=== PATIENT | male | born 1960 | race Two or more races ===

== ENCOUNTER 2024-12-28 16:26 | Emergency (ER) | payer SELFPAY ==
[~2024-12-28] VITALS: Ht 167.6 cm; Wt 78.9 kg
[2024-12-28 17:09] LABS: EOSINOPHILS % (AUTO) 0.6 % (0.0-6.0); LYMPHOCYTES # (AUTO) 0.5 K/uL (0.8-4.8); LYMPHOCYTES % (AUTO) 14.1 % (20.0-44.0); NEUTROPHILS # (AUTO) 2.5 K/uL (1.8-8.9); WHITE BLOOD COUNT (AUTO) 3.2 K/uL (4.3-11.0)
[2024-12-28] MEDS ORDERED: SPIRONOLACTONE 25 MG TABLET ONE (17:10)
[2024-12-28 17:17] LABS: BASOPHILS % (AUTO) 0.5 % (0.0-2.0); HEMATOCRIT 37 % (39-51); HEMOGLOBIN 12.5 g/dL (13.5-17.5); MEAN CORPUSCULAR HEMOGLOBIN 25 PG (26.0-33.0); MEAN CORPUSCULAR HGB CONC 34 g/dl (31.0-36.0); MEAN CORPUSCULAR VOLUME 74 fL (80-96); MONOCYTES # (AUTO) 0.3 K/uL (0.1-1.30); MONOCYTES % (AUTO) 7.8 % (2.0-12.0); PLATELET COUNT (AUTO) 181 K/uL (150-450); RED BLOOD CELL COUNT(AUTO) 4.95 MIL/uL (4.5-6.0)
[2024-12-28 17:19] LABS: CALCIUM, SERUM 9.2 mg/dL (8.5-10.1); CREATININE 0.7 mg/dL (0.6-1.3)
[2024-12-28 17:26] LABS: ALBUMIN 3.5 g/dL (3.4-5.0); BILIRUBIN,DIRECT 0.4 mg/dL (0.0-0.2); BILIRUBIN,TOTAL 1.2 mg/dL (0.2-1.0); TOTAL PROTEIN, SERUM 7.7 g/dL (6.4-8.2)
[2024-12-28] MEDS: SPIRONOLACTONE 25 MG TABLET PO ONE (17:27)
[2024-12-28] MEDS ORDERED: SPIR100T5 PO (17:50)
[2024-12-28 18:02] LABS: EOSINOPHILS % (MANUAL) 2 % (0-4); LYMPHOCYTES % (MANUAL) 20 % (16-48); MONOCYTES % (MANUAL) 9 % (0-11.0); NEUTROPHILS % (MANUAL) 69 (42-76)
[2024-12-28 18:03] LABS: ANISOCYTOSIS 1+; PLATELET ESTIMATE ADEQUATE
[2024-12-28 18:54] VITALS: BP 145/90; TEMP 98.5; O2SAT 99
== END 2024-12-28 19:06 | disposition home or self-care (01) ==
LOC: ER 16:38
DX: C22.0 Liver cell carcinoma (principal); I10 Essential (primary) hypertension; R18.8 Other ascites; Z79.899 Other long term (current) drug therapy
CPT/HCPCS: 36415; 71045-TC; 80048-TC; 80076-TC; 82140-TC; 82962-TC; 83690-TC; 85025-TC